=== PATIENT | male | born 1985 ===

== ENCOUNTER 2025-01-13 05:22 | Inpatient (IN) | payer OTHER ==
[~2025-01-13] VITALS: Ht 188 cm; Wt 97.0 kg
[2025-01-13] MEDS: ONDANSETRON HCL 4 MG/2 ML VIAL IV ONE (05:51)
[2025-01-13] MEDS: PANTOPRAZOLE 40 MG/10 ML VIAL INJ IV ONE ×2 (05:52→07:49)
[2025-01-13] MEDS: MORPHINE SULFATE INJ 2 MG/ml SYRG IV ONE (05:52)
[2025-01-13 05:57] VITALS: PULSE 85; RESP 17; O2SAT 97
[2025-01-13 05:59] LABS: Basophils # (auto) 0 10 ^3/uL (0-0.2); Basophils % (auto) 0.6 % (0.0-2.0); Eosinophils # (auto) 0.1 10 ^3/uL (0-0.8); Eosinophils % (auto) 1.3 % (0.0-7.0); Hematocrit 51.6 % (41.0-53.0); Hemoglobin 17.6 g/dL (13.5-17.5); Lymphocytes # (auto) 1.7 10 ^3/uL (0.4-5.4); Lymphocytes % (auto) 22.7 % (10.0-50.0); Mean Corpuscular Hemoglobin 31.1 pg (28.0-32.0); Mean Corpuscular Hgb Conc. 34.1 g/dL (32.0-36.0); Mean Corpuscular Volume 91.1 fL (80.0-100.0); Monocytes # (auto) 0.7 10 ^3/uL (0-1.3); Monocytes % (auto) 9.3 % (0.0-12.0); Neutrophils # (auto) 4.9 10 ^3/uL (1.6-8.6); Neutrophils % (auto) 66.1 % (37.0-80.0); Nucleated Red Blood Cells % 0.1 %; Platelet Count (auto) 296 10^3/uL (140-450); Red Blood Cells 5.67 10^6/uL (4.5-5.90); Red Cell Distribution Width 13.5 % (11.8-14.3); White Blood Cell 7.4 10^3/uL (4.4-10.8)
[2025-01-13 06:13] LABS: INR 1.05 (0.9-1.15); Prothrombin Time 11.1 sec (9.3-11.8)
[2025-01-13 06:18] LABS: Alanine Aminotransferase 32 U/L (7-40); Alkaline Phosphatase 78 U/L (46-116); Anion Gap 9 (5-15); Aspartate Aminotransferase 23 U/L (13-40); BUN/Creatinine Ratio 9.5 (10.0-20.0); Blood Urea Nitrogen 13 mg/dL (9-23); Carbon Dioxide 29 mmol/L (20-31); Chloride 99 mmol/L (98-107); Glucose 88 mg/dL (74-106); Potassium 3.9 mmol/L (3.5-5.1); Sodium 137 mmol/L (136-145)
[2025-01-13 06:26] LABS: Calcium 10.7 mg/dL (8.7-10.4)
[2025-01-13 06:27] LABS: Albumin 5.4 g/dL (3.2-4.8); Bilirubin, Total 1.4 mg/dL (0.2-1.0); Total Protein 8.7 g/dL (5.7-8.2)
[2025-01-13] MEDS: IOHEXOL 300 MG/ML 100ML BOTTLE IJ ONE (06:44)
--- NOTE | 2025-01-13 07:22 | DVH ---
EXAM: CT Abdomen and Pelvis With Intravenous Contrast CLINICAL INDICATION: Coffee ground emesis TECHNIQUE: Axial computed tomography images of the abdomen and pelvis with intravenous contrast. Th is CT exam was performed using one or more of the following dose reduction techniques: automated exp osure control, adjustment of the mA and/or kV according to patient size, and/or use of iterative cuauhtemoc nstruction technique. CONTRAST: RADIATION DOSE: CTDIvol = 15.93 mGy, DLP = 847.54 mGy-cm COMPARISON: None FINDINGS: LUNG BASES: Unremarkable. No mass. No consolidation. ABDOMEN: LIVER: Hepatomegaly with fatty infiltration. GALLBLADDER AND BILE DUCTS: Unremarkable. No calcified stones. No ductal dilation. PANCREAS: Unremarkable. No mass. No ductal dilation. SPLEEN: Unremarkable. No splenomegaly. ADRENALS: Unremarkable. No mass. KIDNEYS AND URETERS: Unremarkable. No solid mass. No hydronephrosis. STOMACH AND BOWEL: Potential asymmetric gastric thickening of the gastric antrum on axial image 20. This could be secondary to underdistention or gastritis. Clinical correlation is recommended. [place] willy diverticulosis without acute diverticulitis. PELVIS: APPENDIX: No findings to suggest acute appendicitis. BLADDER: Unremarkable. No mass. REPRODUCTIVE: Unremarkable as visualized. ABDOMEN and PELVIS: INTRAPERITONEAL SPACE: Unremarkable. No free air. No significant fluid collection. BONES/JOINTS: No acute fracture. No dislocation. SOFT TISSUES: Umbilical hernia containing fat. VASCULATURE: Unremarkable. No abdominal aortic aneurysm. LYMPH NODES: Unremarkable. No enlarged lymph nodes. OTHER FINDINGS: . . IMPRESSION: 1. Potential asymmetric gastric thickening of the gastric antrum on axial image 20. This could be se condary to underdistention or gastritis. Clinical correlation is recommended. 2. Hepatomegaly with fatty infiltration. 3. Umbilical hernia containing fat. 4. Colonic diverticulosis without acute diverticulitis.
--- NOTE | 2025-01-13 07:26 | ED.PDOC ---
GI ASSESSMENT HPI Comments 39 y/o M, with no prior medical history presents to the ED for CC of GI bleed. Patient states, that he woke up this morning (01/13/25) when he began to throw up black coffee ground in appearance emesis [id number]. Patient relays, that he has been throwing up daily for the past several day but never black in appearance. Patient complains, of onset symptoms of abdominal pain, poor appetite, and headache x2days. Patient denies dark stools, fever, chills, or body-aches. No other symptoms or modifying factors present at this time. Chief Complaint: GI Bleed Time Seen by MD: 07:25 Reviewed Notes: Nurses Notes, Medications, Allergies Allergies: Coded Allergies: No Known Drug Allergy (Verified Allergy, Unknown, 01/13/25) Information Source: Patient Mode of Arrival: Ambulatory Timing: Hours Duration: Since onset Prehospital treatment: None Quality: None Vomitus: Tarry Black, Coffee Grounds Stool: Normal Severity: Moderate Recent: None Recent Hx of: None Pain Location: Diffuse Modifying Factors: Nothing Associated sign and symptoms: Nausea, Vomiting Past Medical History PAST MEDICAL HISTORY: Denies Surgical History: Denies all surgeries Family History Family History: Unknown Social History Smoker: Non-Smoker Alcohol: Denies ETOH Use Drugs: Denies Drug Use Lives In: Home Constitutional: denies: chills, diaphoresis, fatigue, fever, malaise, sweats, weakness, others EENTM: denies: blurred vision, double vision, ear bleeding, ear discharge, ear drainage, ear pain, ear ringing, eye pain, eye redness, hearing loss, mouth pain, mouth swelling, nasal discharge, nose bleeding, nose congestion, nose pain, photophobia, tearing, throat pain, throat swelling, voice changes, others Respiratory: denies: cough, hemoptysis, orthopnea, SOB at rest, shortness of breath, SOB with excertion, stridor, wheezing, others Cardiovascular: denies: chest pain, dizzy spells, diaphoresis, Dyspnea on exertion, edema, irregular heart beat, left arm pain, lightheadedness, pa lpitations, PND, syncope, others Gastrointestinal: reports: abdominal pain, nausea, poor appetite, vomiting; denies: abdomen distended, blood streaked bowels, constipated, diarrhea, dysphagia, difficulty swallowing, hematemesis, melena, poor fluid intake, rectal bleeding, rectal pain, others Genitourinary: denies: burning, dysuria, flank pain, frequency, hematuria, incontinence, penile discharge, penile sore, pain, testicle pain, testicle swelling, urgency, others Neurological: reports: headache; denies: dizziness, fainting, left sided numbness, left sided weakness, numbness, paresthesia, pre-existing deficit, right sided numbness, right sided weakness, seizure, speech problems, tingling, tremors, weakness, others Musculoskeletal: denies: back pain, gout, joint pain, joint swelling, muscle pain, muscle stiffness, neck pain, others Integumetry: denies: bruises, change in color, change in hair/nails, dryness, laceration, lesions, lumps, rash, wounds, others Allergic/Immunocompromised: denies: Difficulty Healing, Frequent Infections, Hives, Itching, others Hematologic/Lymphatic: denies: anemia, blood clots, easy bleeding, easy bruisin g, swollen glands, others Endocrine: denies: excessive hunger, excessive sweating, excessive thirst, excessive urination, flushing, intolerance to cold, intolerance to heat, unexplained weight gain, unexplained weight loss, others Psychiatric: denies: anxiety, bipolar disorder, depression, hopeless, panic disorder, schizophrenia, sleepless, suicidal, others All Other Systems: Reviewed and Negative Physical Exam General Appearance: Moderate Distress HEENT: Normal ENT Inspection, Pharynx Normal, TMs Normal Neck: Full Range of Motion, Non-Tender, Normal, Normal Inspection Respiratory: Chest Non-Tender, Lungs Clear, No Accessory Muscle Use, No Respiratory Distress, Normal Breath Sounds Cardiovascular: No Edema, No JVD, No Murmur, No Gallop, Normal Peripheral Pulses, Regular Rate/Rhythm Breast Exam: Deferred Gastrointestinal: No Organomegaly, Non Tender, No Pulsatile Mass, Normal Bowel Sounds, Soft Genitalia: Deferred Pelvic: Deferred Rectal: Deferred Extremities: No calf tenderness, Normal capillary refill, Normal inspection, Normal range of motion, Non-tender, No pedal edema Musculoskeletal : Apperance: Normal Neurologic: Alert, kiln operator II-XII nml as Tested, No Motor Deficits, Normal Affect, Normal Mood, No Sensory Deficits Cerebellar Function: Normal Reflexes: Normal Skin: Dry, Normal Color, Warm Peripheral Pulses: 3+ Radial (R), 3+ Radial (L) Lymphatic: No Adenopathy Was a procedure done? Was a procedure done?: No GI differential Dx Differential Diagnosis: Constipation, Diverticular disease, Esophagitis, Gastritis/PUD, Gastroenteritis, GI hemorrhage X-Ray, Labs, Meds, VS Vital Signs Date Time Temp Pulse Resp B/P (MAP) Pulse Ox O2 Delivery O2 Flow Rate FiO2 01/13/25 07:52 75 17 97 Room Air 01/13/25 07:52 98.2 75 17 143/94 (110) 97 98.2 01/13/25 07:50 75 18 143/93 01/13/25 05:57 85 17 131/90 (104) 97 01/13/25 05:57 85 17 97 Room Air* 0 21 01/13/25 05:52 86 17 131/90 01/13/25 05:36 98.2 103 18 132/74 (93) 97 98.2 Lab Test 01/13/25 05:37 Range/Units White Blood Count 7.4 4.4-10.8 10^3/uL Red Blood Count 5.67 4.5-5.90 10^6/uL Hemoglobin 17.6 H 13.5-17.5 g/dL Hematocrit 51.6 41.0-53.0 % Mean Corpuscular Volume 91.1 80.0-100.0 fL Mean Corpuscular Hemoglobin 31.1 28.0-32.0 pg Mean Corpuscular Hemoglobin Concent 34.1 32.0-36.0 g/dL Red Cell Distribution Width 13.5 11.8-14.3 % Platelet Count 296 140-450 10^3/uL Mean Platelet Volume 8.3 6.9-10.8 fL Neutrophils (%) (Auto) 66.1 37.0-80.0 % Lymphocytes (%) (Auto) 22.7 10.0-50.0 % Monocytes (%) (Auto) 9.3 0.0-12.0 % Eosinophils (%) (Auto) 1.3 0.0-7.0 % Basophils (%) (Auto) 0.6 0.0-2.0 % Neutrophils # (Auto) 4.9 1.6-8.6 10 ^3/uL Lymphocytes # (Auto) 1.7 0.4-5.4 10 ^3/uL Monocytes # (Auto) 0.7 0-1.3 10 ^3/uL Eosinophils # (Auto) 0.1 0-0.8 10 ^3/uL Basophils # (Auto) 0 0-0.2 10 ^3/uL Nucleated Red Blood Cells 0.1 % Prothrombin Time 11.1 9.3-11.8 sec Prothrombin Time INR 1.05 0.9-1.15 Sodium Level 137 136-145 mmol/L Potassium Level 3.9 3.5-5.1 mmol/L Chloride Level 99 98-107 mmol/L Carbon Dioxide Level 29 20-31 mmol/L Anion Gap 9 5-15 Blood Urea Nitrogen 13 9-23 mg/dL Creatinine 1.37 H 0.700-1.30 mg/dL Glomerular Filtration Rate Calc 67 >90 mL/min BUN/Creatinine Ratio 9.5 L 10.0-20.0 Serum Glucose 88 74-106 mg/dL Lactic Acid Level 1.1 0.4-2.0 mmol/L Calcium Level 10.7 H 8.7-10.4 mg/dL Total Bilirubin 1.4 H 0.2-1.0 mg/dL Aspartate Amino Transferase (AST) 23 13-40 U/L Alanine Aminotransferase (ALT) 32 7-40 U/L Alkaline Phosphatase 78 46-116 U/L Troponin I High Sensitivity < 3 L </=54 ng/L Total Protein 8.7 H 5.7-8.2 g/dL Albumin 5.4 H 3.2-4.8 g/dL Current Medications Medications (Trade) Dose Ordered Sig/Najma Route Start Time Stop Time Status Last Admin Pantoprazole Sodium (Protonix) 40 mg ONCE ONCE IV 01/13/25 05:45 01/13/25 05:46 DC 01/13/25 05:52 Morphine Sulfate 2 mg ONCE ONCE IV 01/13/25 05:45 01/13/25 05:46 DC 01/13/25 05:52 Ondansetron HCl (Zofran) 4 mg ONCE ONCE IV 01/13/25 05:45 01/13/25 05:46 DC 01/13/25 05:51 Pantoprazole Sodium (Protonix) 40 mg ONCE ONCE IV 01/13/25 07:30 01/13/25 07:31 DC 01/13/25 07:49 [facility] [id number] [facility] [address] Ph: [phone] DIAGNOSTIC IMAGING Diagnostic Imaging Report : [id number] Signed PATIENT: ZOHREH MORELOS ACCT: [id number] UNIT: [id number] : 1985 LOC: ER ROOM / BED: / AGE / SEX: 39 / M ADM STATUS: REG ER SERVICE 0534 ORDERING PHYSICIAN: JOSE TEJADA MD PROCEDURE(s): ABPLIV - CT AB PEL WITH IV CON ONLY REASON: Coffee ground emesis ORDER NUMBER(s): [id number], ACCESSION NUMBER(s): [id number] EXAM: CT Abdomen and Pelvis With Intravenous Contrast CLINICAL INDICATION: Coffee ground emesis TECHNIQUE: Axial computed tomography images of the abdomen and pelvis with intravenous contrast. This CT exam was performed using one or more of the following dose reduction techniques: automated exposure control, adjustment of the mA and/or kV according to patient size, and/or use of iterative reconstruction technique. CONTRAST: RADIATION DOSE: CTDIvol = 15.93 mGy, DLP = 847.54 mGy-cm COMPARISON: None FINDINGS: LUNG BASES: Unremarkable. No mass. No consolidation. ABDOMEN: LIVER: Hepatomegaly with fatty infiltration. GALLBLADDER AND BILE DUCTS: Unremarkable. No calcified stones. No ductal dilation. PANCREAS: Unremarkable. No mass. No ductal dilation. SPLEEN: Unremarkable. No splenomegaly. ADRENALS: Unremarkable. No mass. KIDNEYS AND URETERS: Unremarkable. No solid mass. No hydronephrosis. STOMACH AND BOWEL: Potential asymmetric gastric thickening of the gastric antrum on axial image 20. This could be secondary to underdistention or gastritis. Clinical correlation is recommended. Colonic diverticulosis without acute diverticulitis. PELVIS: APPENDIX: No findings to suggest acute appendicitis. BLADDER: Unremarkable. No mass. REPRODUCTIVE: Unremarkable as visualized. ABDOMEN and PELVIS: INTRAPERITONEAL SPACE: Unremarkable. No free air. No significant fluid collection. BONES/JOINTS: No acute fracture. No dislocation. SOFT TISSUES: Umbilical hernia containing fat. VASCULATURE: Unremarkable. No abdominal aortic aneurysm. LYMPH NODES: Unremarkable. No enlarged lymph nodes. OTHER FINDINGS: . . IMPRESSION: 1. Potential asymmetric gastric thickening of the gastric antrum on axial image 20. This could be secondary to underdistention or gastritis. Clinical correlation is recommended. 2. Hepatomegaly with fatty infiltration. 3. Umbilical hernia containing fat. 4. Colonic diverticulosis without acute diverticulitis. ATED BY: SABAS COCHRAN MD DICTATED DATE/TIME: 01/13/25719 SIGNED BY: SABAS COCHRAN MD SIGNED DATE/TIME: 01/13/25719 CC: [place] [address] Ph: [phone] DIAGNOSTIC IMAGING Diagnostic Imaging Report : [id number] Signed PATIENT: ZOHREH MORELOS ACCT: [id number] UNIT: [id number] : 1985 [facility] AGE / SEX: 39 / M ADM STATUS: ADM IN SERVICE 9 ORDERING PHYSICIAN: FARIHA FRY MD PROCEDURE(s): CXR1 - CHEST XRAY 1 VIEW REASON: HEMOPTYSIS ORDER NUMBER(s): [id number], ACCESSION NUMBER(s): [id number] CHEST RADIOGRAPH Indication: HEMOPTYSIS Technique: Single frontal view of the chest was obtained Comparison: None FINDINGS: Lines and Tubes: None Lungs: No focal consolidation. Pleura: No effusion. No pneumothorax. Cardiomediastinal contours: Unremarkable Bones: No acute osseous abnormality. IMPRESSION: No acute cardiopulmonary disease. ATED BY: FRANCK GOMEZ MD DICTATED DATE/TIME: 01/13/25936 SIGNED BY: FRANCK GOMEZ MD SIGNED DATE/TIME: 01/13/25936 CC: Patient alert. Complaining of vomiting dark material. Vitals stable. Answering questions. WBC within normal limits. Hemoglobin within normal limits. CT scan of the abdomen reviewed does show thickening possible gastritis. Establish intravenous access. Was given Protonix. GI consultation. Explained to the patient. Continue monitoring. Time of 1ST Reevaluation: 07:55 Reevaluation 1ST: Unchanged Patient Education/Counseling: Diagnosis, Treatment Family Education/Counseling: No Family Present Departure 1 Departure Time of Disposition: 07:37 Impression: Primary Impression: Acute abdominal pain Additional Impressions: Gastritis Qualified Codes: K29.01 - Acute gastritis with bleeding GI bleed Qualified Codes: K92.2 - Gastrointestinal hemorrhage, unspecified Disposition: ADMITTED INPATIENT Admit to: Med Surg Condition: Guarded Critical Care Note Critical Care Time?: No Stability Stability form required: No Heart Score Heart Score: Heart Score Response (Comments) Value History N/A 0 EKG N/A 0 Age N/A 0 Risk Factors N/A 0 Troponin N/A 0 Total 0 I personally scribed for FARIHA FRY MD ([email or web address]) on 01/13/25 at 07:26. Electronically submitted by [employer] ([email or web address]). I personally scribed for FARIHA FRY MD ([email or web address]) on 01/13/25 at 07:33. Electronically submitted by [employer] ([email or web address]). I personally scribed for FARIHA FRY MD ([email or web address]) on 01/13/25 at 07:34. Electronically submitted by [employer] ([email or web address]). I personally scribed for FARIHA FRY MD ([email or web address]) on 01/13/25 at 10:29. Electronically submitted by [employer] ([employer]). FARIHA FRY MD Jan 13, 2025 07:26
[2025-01-13] MEDS ORDERED: HYDROcodone-ACET 5/325MG TAB PO PRN (09:15)
[2025-01-13] MEDS ORDERED: MORPHINE SULFATE INJ 2 MG/ml SYRG IV PRN (09:15)
[2025-01-13] MEDS ORDERED: ACETAMINOPHEN 325 MG TAB PO PRN (09:15)
[2025-01-13] MEDS: SODIUM CHLORIDE 0.9% 1,000 ML IV SCH (09:29)
--- NOTE | 2025-01-13 09:29 | DVHHP2 ---
History of Present Illness Reason for Visit: Abdominal pain History of Present Illness Maurilio Harvey is a 39-year-old male with past medical history of anxiety, PTSD, hernia repair, back pain, neck pain, bone spurs, and arthritis who had an epidural 6-9 months ago who presents to the ED with abdominal pain and cramping with headache with nausea and vomiting times 2 weeks. Patient reports that the pain is 7/10 constant and cramp like. Patient reports that the pain help with the morphine injection that was given earlier today. Patient states that today's emesis had black dark and were dime-sized. He reports that he used semaglutide injections to help with weight loss which was not prescribed and he was able to obtain it on a site called [employer]. Patient reports that he was in the [employer] for 12 years. Patient denies any recent travel, denies any recent trauma or injury, denies any recent sick contacts, fever, chills, lightheadedness, weakness, diarrhea, dizziness, shortness breath, chest pain, or urinary symptoms. Psych: Anxiety, Other (PTSD) Past Medical History Chronic back pain Chronic neck pain Bone spurs Arthritis Past Surgical History: Hernia Repair Family History: Cancer, Other (Dad from melanoma cancer and mom from pancreatic cancer) Smoke: No ALCOHOL: none Drugs: None Lives: with Family Domestic Violence: Neg Review of Systems Constitutional: Yes: Other (Headache and poor appetite) Gastrointestinal: Nausea, Vomiting, Abdominal Pain Allergies: Coded Allergies: No Known Drug Allergy (Verified Allergy, Unknown, 01/13/25) Medications Current Medications Medications Dose Ordered Sig/Najma Route Start Time Stop Time Status Last Admin Dose Admin Pantoprazole Sodium 40 mg DAILY IV 01/13/25 10:00 UNV Piperacillin Sod/ Tazobactam Sod 100 ml @ 25 mls/hr Q8HR IV 01/13/25 14:00 UNV Sodium Chloride 1,000 ml @ 100 mls/hr Q10H IV 01/13/25 09:15 UNV Acetaminophen/ Hydrocodone Bitart 1 tab Q4HP PRN PO 01/13/25 09:15 UNV Ondansetron HCl 4 mg Q4HP PRN IV 01/13/25 09:15 UNV Acetaminophen 650 mg Q6HP PRN PO 01/13/25 09:15 UNV Morphine Sulfate 2 mg Q4HPRN PRN IV 01/13/25 09:15 UNV Exam Vital Signs Vital Signs Date Time Temp Pulse Resp B/P (MAP) Pulse Ox O2 Delivery O2 Flow Rate FiO2 01/13/25 07:52 75 17 97 Room Air 01/13/25 07:52 98.2 143/94 (110) 98.2 01/13/25 05:57 0 21 General Appearance: Alert, Oriented X3, Cooperative, No acute distress HEENT: Atraumatic, PERRLA, EOMI, Mucous membr. moist/pink Respiratory: Clear to auscultation, Normal air movement Cardiovascular: Normal S1, Normal S2, No murmurs Abdominal: Soft Extremities: No clubbing, No cyanosis, No edema, Normal pulses Skin: No significant lesion Neuro: Normal gait, Normal speech, Strength at 5/5 X4 ext, Normal tone, Sensation intact Psych/Mental Status: Mental status NL, Mood NL Labs/Xrays Labs Test 01/13/25 05:37 Range/Units White Blood Count 7.4 4.4-10.8 10^3/uL Red Blood Count 5.67 4.5-5.90 10^6/uL Hemoglobin 17.6 H 13.5-17.5 g/dL Hematocrit 51.6 41.0-53.0 % Mean Corpuscular Volume 91.1 80.0-100.0 fL Mean Corpuscular Hemoglobin 31.1 28.0-32.0 pg Mean Corpuscular Hemoglobin Concent 34.1 32.0-36.0 g/dL Red Cell Distribution Width 13.5 11.8-14.3 % Platelet Count 296 140-450 10^3/uL Mean Platelet Volume 8.3 6.9-10.8 fL Neutrophils (%) (Auto) 66.1 37.0-80.0 % Lymphocytes (%) (Auto) 22.7 10.0-50.0 % Monocytes (%) (Auto) 9.3 0.0-12.0 % Eosinophils (%) (Auto) 1.3 0.0-7.0 % Basophils (%) (Auto) 0.6 0.0-2.0 % Neutrophils # (Auto) 4.9 1.6-8.6 10 ^3/uL Lymphocytes # (Auto) 1.7 0.4-5.4 10 ^3/uL Monocytes # (Auto) 0.7 0-1.3 10 ^3/uL Eosinophils # (Auto) 0.1 0-0.8 10 ^3/uL Basophils # (Auto) 0 0-0.2 10 ^3/uL Nucleated Red Blood Cells 0.1 % Prothrombin Time 11.1 9.3-11.8 sec Prothrombin Time INR 1.05 0.9-1.15 Sodium Level 137 136-145 mmol/L Potassium Level 3.9 3.5-5.1 mmol/L Chloride Level 99 98-107 mmol/L Carbon Dioxide Level 29 20-31 mmol/L Anion Gap 9 5-15 Blood Urea Nitrogen 13 9-23 mg/dL Creatinine 1.37 H 0.700-1.30 mg/dL Glomerular Filtration Rate Calc 67 >90 mL/min BUN/Creatinine Ratio 9.5 L 10.0-20.0 Serum Glucose 88 74-106 mg/dL Lactic Acid Level 1.1 0.4-2.0 mmol/L Calcium Level 10.7 H 8.7-10.4 mg/dL Total Bilirubin 1.4 H 0.2-1.0 mg/dL Aspartate Amino Transferase (AST) 23 13-40 U/L Alanine Aminotransferase (ALT) 32 7-40 U/L Alkaline Phosphatase 78 46-116 U/L Troponin I High Sensitivity < 3 L </=54 ng/L Total Protein 8.7 H 5.7-8.2 g/dL Albumin 5.4 H 3.2-4.8 g/dL EXAM: CT Abdomen and Pelvis With Intravenous Contrast CLINICAL INDICATION: Coffee ground emesis TECHNIQUE: Axial computed tomography images of the abdomen and pelvis with intravenous contrast. This CT exam was performed using one or more of the following dose reduction techniques: automated exposure control, adjustment of the mA and/or kV according to patient size, and/or use of iterative reconstr uction technique. CONTRAST: RADIATION DOSE: CTDIvol = 15.93 mGy, DLP = 847.54 mGy-cm COMPARISON: None FINDINGS: LUNG BASES: Unremarkable. No mass. No consolidation. ABDOMEN: LIVER: Hepatomegaly with fatty infiltration. GALLBLADDER AND BILE DUCTS: Unremarkable. No calcified stones. No ductal dilation. PANCREAS: Unremarkable. No mass. No ductal dilation. SPLEEN: Unremarkable. No splenomegaly. ADRENALS: Unremarkable. No mass. KIDNEYS AND URETERS: Unremarkable. No solid mass. No hydronephrosis. STOMACH AND BOWEL: Potential asymmetric gastric thickening of the gastric antrum on axial image 20. This could be secondary to underdistention or gastritis. Clinical correlation is recommended. Colonic diverticulosis without acute diverticulitis. PELVIS: APPENDIX: No findings to suggest acute appendicitis. BLADDER: Unremarkable. No mass. REPRODUCTIVE: Unremarkable as visualized. ABDOMEN and PELVIS: INTRAPERITONEAL SPACE: Unremarkable. No free air. No significant fluid collection. BONES/JOINTS: No acute fracture. No dislocation. SOFT TISSUES: Umbilical hernia containing fat. VASCULATURE: Unremarkable. No abdominal aortic aneurysm. LYMPH NODES: Unremarkable. No enlarged lymph nodes. OTHER FINDINGS: . . IMPRESSION: 1. Potential asymmetric gastric thickening of the gastric antrum on axial image 20. This could be secondary to underdistention or gastritis. Clinical correlation is recommended. 2. Hepatomegaly with fatty infiltration. 3. Umbilical hernia containing fat. 4. Colonic diverticulosis without acute diverticulitis. Assessment/Plan Assessment/Plan Assessment Intractable abdominal pain likely due to gastritis Rule out GI bleed TATI Hyperbilirubinemia History of anxiety History of PTSD History of back pain History of neck pain History of bone spurs History of arthritis History of hernia repair Plan Admit to [facility] abdomen and pelvis PPIs Antiemetics Pain management Lactic level Stool occult UA Troponin negative EKG Chest x-ray D-dimer PT/INR IV antibiotics-Zosyn GI consult by ED NPO for now IV fluids Home medications reconciled Discussed plan of care with patient, patient's spouse, and nurse DVT prophylaxis-not indicated patient ambulating PUD prophylaxis-Protonix Plan discussed with: Patient My Orders Orders - LEXII CHAUHAN [employer] 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 Procedure Category Date Status Time Pantoprazole PHA 01/13/25 Logged (Protonix) 10:00 Piperacillin-Tazob PHA 01/13/25 Logged 3.375gm (Zosyn 3.375g 14:00 Admit ADMIT 01/13/25 Transmitted 09:13 Allergies LUCÍA 01/13/25 In Process 09:13 Code Status CODE 01/13/25 Transmitted 09:13 Sodium Chloride 0.9% PHA 01/13/25 Logged 09:15 Hydrocodone-Acet PHA 01/13/25 Logged 5/325mg Tab ([place] 09:15 Ondansetron Hcl PHA 01/13/25 Logged (Zofran) 09:15 Complete Blood Count LAB 01/14/25 Verified 04:00 Comprehensive LAB 01/14/25 Verified Metabolic Panel 04:00 Npo (Nothing By DIET 01/13/25 Transmitted Mouth) Diet Breakfast Acetaminophen Tablet PHA 01/13/25 Logged (Tylenol Tablet) 09:15 Morphine Sulfate PHA 01/13/25 Logged Injection 09:15 Sequential LUCÍA 01/13/25 In Process Compression Device Sertraline Hcl PHA 01/13/25 Verified (Zoloft) 10:00 Prazosin Hcl Capsule PHA 01/13/25 Verified (Minipres Capsule) 10:00 Trazodone Hcl PHA 01/13/25 Verified (Desyrel) 22:00 Date of Service: Jan 13, 2025 Billing Provider: LEXII CHAUHAN Common Visit Codes: [id number] INP/OBS CARE (HIGH) LEXII CHAUHAN Jan 13, 2025 09:29
[2025-01-13] MEDS: PIPERACILLIN-TAZOB 3.375GM 100 ML IV ONE (09:34)
--- NOTE | 2025-01-13 09:40 | DVH ---
CHEST RADIOGRAPH Indication: HEMOPTYSIS Technique: Single frontal view of the chest was obtained Comparison: None FINDINGS: Lines and Tubes: None Lungs: No focal consolidation. Pleura: No effusion. No pneumothorax. Cardiomediastinal contours: Unremarkable Bones: No acute osseous abnormality. IMPRESSION: No acute cardiopulmonary disease.
[2025-01-13] MEDS: PANTOPRAZOLE 40 MG/10 ML VIAL INJ IV SCH (09:49)
[2025-01-13] MEDS: SERTRALINE HCL 50 MG TAB PO SCH (09:49)
[2025-01-13] MEDS: PRAZOSIN HCL 1 MG CAP PO SCH (10:07)
[2025-01-13 10:30] VITALS: BP 129/91; PULSE 60; RESP 18; O2SAT 97
[2025-01-13] MEDS: POLYETHYLENE GLYCOL 17 GM PWDR PO SCH (11:08)
[2025-01-13] MEDS ORDERED: TRAZ-181 PO (11:40)
[2025-01-13] MEDS ORDERED: PRAZ1CAP48 PO (11:40)
[2025-01-13] MEDS ORDERED: SERT-206 PO (11:40)
[2025-01-13] MEDS: ONDANSETRON HCL 4 MG/2 ML VIAL IV PRN (12:45)
[2025-01-13 13:05] LABS: Urine Bacteria None Seen /hpf (None Seen)
[2025-01-13 13:07] VITALS: BP 129/91; PULSE 60; RESP 18; TEMP 97.4; O2SAT 97
[2025-01-13 13:12] LABS: Urine Blood Negative /uL (Negative); Urine Clarity Clear (Clear); Urine Color Yellow (Yellow); Urine Mucus FEW (None Seen); Urine Protein, UAD 1+ (Negative); Urine Squamous Epithelial Cell FEW /hpf (<5); Urine Urobilinogen Normal (Negative); Urine WBC 1 /HPF (0-3)
[2025-01-13 13:14] LABS: Urine Specific Gravity > 1.050 (1.001-1.035)
[2025-01-13 14:51] VITALS: BP 122/82; PULSE 64; RESP 15; TEMP 97.7; O2SAT 100
[2025-01-13] MEDS: PIPERACILLIN-TAZOB 3.375GM 100 ML IV SCH (15:09)
[2025-01-13 17:00] VITALS: BP 108/73; PULSE 79; RESP 16; TEMP 98.3; O2SAT 98
[2025-01-13 21:00] VITALS: BP 121/78; PULSE 69; RESP 18; TEMP 97.8; O2SAT 97
[2025-01-13] MEDS: traZODone HCL 50 MG TAB PO SCH (21:20)
[2025-01-13] MEDS: SENNA 8.6 MG TAB PO SCH (22:00)
[2025-01-14] VITALS (7 sets, daily range): BP systolic 117–128; BP diastolic 71–90; PULSE 77–94; RESP 18–19; TEMP 97.7–98.2; O2SAT 95–98
[2025-01-14 06:40] LABS: Basophils # (auto) 0 10 ^3/uL (0-0.2); Basophils % (auto) 0.4 % (0.0-2.0); Eosinophils # (auto) 0.1 10 ^3/uL (0-0.8); Eosinophils % (auto) 1.4 % (0.0-7.0); Hematocrit 45.8 % (41.0-53.0); Hemoglobin 15.7 g/dL (13.5-17.5); Lymphocytes # (auto) 1.8 10 ^3/uL (0.4-5.4); Mean Corpuscular Hemoglobin 30.8 pg (28.0-32.0); Mean Corpuscular Hgb Conc. 34.2 g/dL (32.0-36.0); Mean Corpuscular Volume 89.8 fL (80.0-100.0); Monocytes # (auto) 0.7 10 ^3/uL (0-1.3); Monocytes % (auto) 9.3 % (0.0-12.0); Neutrophils # (auto) 4.9 10 ^3/uL (1.6-8.6); Neutrophils % (auto) 64.9 % (37.0-80.0); Nucleated Red Blood Cells % 0.1 %; Platelet Count (auto) 248 10^3/uL (140-450); Red Blood Cells 5.09 10^6/uL (4.5-5.90); Red Cell Distribution Width 13.2 % (11.8-14.3); White Blood Cell 7.6 10^3/uL (4.4-10.8)
[2025-01-14 07:03] LABS: Alanine Aminotransferase 24 U/L (7-40); Albumin 4.5 g/dL (3.2-4.8); Alkaline Phosphatase 63 U/L (46-116); Anion Gap 10 (5-15); Aspartate Aminotransferase 17 U/L (13-40); BUN/Creatinine Ratio 10.5 (10.0-20.0); Blood Urea Nitrogen 14 mg/dL (9-23); Calcium 9.6 mg/dL (8.7-10.4); Carbon Dioxide 26 mmol/L (20-31); Chloride 101 mmol/L (98-107); Glucose 76 mg/dL (74-106); Potassium 3.9 mmol/L (3.5-5.1); Sodium 137 mmol/L (136-145); Total Protein 7.3 g/dL (5.7-8.2)
[2025-01-14 07:04] LABS: Bilirubin, Total 1.4 mg/dL (0.2-1.0)
[2025-01-14] MEDS: D5W/SOD CHL 0.45% 1,000 ML IV ONE (12:57)
[2025-01-14] MEDS: SODIUM CHLORIDE 0.9% 1,000 ML IV ONE (12:58)
--- NOTE | 2025-01-14 14:05 | DVHPNRES ---
Progress Note Date Seen: Jan 14, 2025 Resident Creating Document: RE KATE CLARISSA Has the PT tested + for MRSA If YES, has PT been informed?: No Medical Necessity Reason Pt with a Central, PICC or Fol: No Subjective Review of Systems This is a 39-year-old male with past medical history of anxiety, PTSD, hernia repair, back/neck pain, bone spur and arthritis came to hospital due to intractable abdominal pain and vomiting. Per patient he was vomiting since 3 weeks, which was been black since 2 this. He also reports crampy abdominal pain, headache, constipation and decreased oral intake. He denies fever, chest pain, shortness of breath or any recent bowel habit changes. PMHx: anxiety, PTSD, hernia repair, back/neck pain, bone spur and arthritis PSHx: Patient has an epidural pain management since 9 months, BCC (status was excision/remission) Family history: Father had melanoma Social history: Ex-vapor, denies any other drug use. Lives at Home with the . Home medication: Prazosin, sertraline, trazodone Allergic history: No known allergy Patient reports: No new complaints, Feels better Changes from previous H/P or p: No Changes Objective vital signs Vital Sign Date Time Temp Pulse Resp B/P (MAP) Pulse Ox O2 Delivery O2 Flow Rate FiO2 01/14/25 12:56 97.8 77 18 121/79 (93) 96 97.8 01/13/25 20:00 Room Air* 0 21 Total Intake and Output 01/13/25 01/13/25 01/14/25 14:59 22:59 06:59 Intake Total 300 ml 100 ml Balance 300 ml 100 ml medications Current Medications Medications Dose Ordered Sig/Najma Route Start Time Stop Time Status Last Admin Dose Admin Pantoprazole Sodium 40 mg DAILY IV 01/13/25 10:00 01/14/25 09:57 40 MG Piperacillin Sod/ Tazobactam Sod 100 ml @ 25 mls/hr Q8HR IV 01/13/25 15:00 01/14/25 06:14 25 MLS/HR Sodium Chloride 1,000 ml @ 100 mls/hr Q10H IV 01/13/25 09:15 01/13/25 09:29 100 MLS/HR Acetaminophen/ Hydrocodone Bitart 1 tab Q4HP PRN PO 01/13/25 09:15 Ondansetron HCl 4 mg Q4HP PRN IV 01/13/25 09:15 01/13/25 12:45 4 MG Acetaminophen 650 mg Q6HP PRN PO 01/13/25 09:15 Morphine Sulfate 2 mg Q4HPRN PRN IV 01/13/25 09:15 Sertraline HCl 100 mg DAILY PO 01/13/25 10:00 01/14/25 09:59 100 MG Prazosin HCl 1 mg Q12HR PO 01/13/25 10:00 01/14/25 09:58 1 MG Trazodone HCl 50 mg HS PO 01/13/25 22:00 01/13/25 21:20 50 MG Polyethylene Glycol 17 gm DAILY PO 01/13/25 10:00 01/14/25 09:58 17 GM Sennosides 8.6 mg HS PO 01/13/25 22:00 Examination General Appearance: Alert, Oriented X3, Cooperative, No acute distress HEENT: Atraumatic, PERRLA, EOMI, Mucous membrane moist/pink Respiratory: Clear to auscultation, Normal air movement Cardiovascular: Regular rate, Normal S1, Normal S2, No murmurs, no chest wall tenderness Abdominal: Mild abdominal tenderness Extremities: No clubbing, No cyanosis, No edema, Normal pulses, No tenderness/swelling Skin: Numerous brown macular lesion on the body Neuro: Normal gait, Normal speech, Strength at 5/5 X4 ext, Normal tone, Sensation intact, Cranial nerves 3-12 NL, Reflexes 2+ Psych/Mental Status: Mental status NL, Mood NL laboratory and microbiology Laboratory Tests 01/14/25 05:25 Test 01/14/25 05:25 Range/Units Serum Glucose 76 74-106 mg/dL Labs and/or images reviewed: Labs reviewed by me, Image(s) reviewed by me Problem List/Assessment/Plan Problem List/Assessment/Plan Possible upper GI bleeding Abdominopelvic CT scan shows, potential asymmetric gastric thickening of the gastric antrum on axial image 20. This could be secondary to underdistention or gastritis GI on the board Stool occult blood Protonix Zofran p.r.n. Empiric antibiotic, Rocephin Possible TATI, likely VMN IV fluid History of PTSD History of anxiety Continue home meds DIET: Clear liquid diet DVT PROPHYLAXIS: Due to possible upper GI bleeding, no anticoagulant is indicated GI PROPHYLAXIS:: Protonix BOWEL REGIMEN: MiraLax DISPOSITION: Med/surge Patient's status and plan discussed with the patient. Case discussed with Dr. Saleh. Plan discussed with: Patient, Spouse, Other (RN) My Orders My Orders Orders - RE KATE Procedure Category Date Status Time Drug Screen LAB 01/14/25 Logged 08:20 D5w/Sod Chl 0.45% PHA 01/14/25 In Process (D5w 1/2ns) 11:45 RE KATE Jan 14, 2025 14:05
[2025-01-14] MEDS: PANTOPRAZOLE 40 MG/10 ML VIAL INJ IV SCH (17:09)
[2025-01-14] MEDS: cefTRIAXone 1GM/50ML D5W 50 ML IV ONE (17:10)
--- NOTE | 2025-01-14 19:14 | DVHINCON2 ---
Date of service: Jan 14, [address] Bright Reason for Consultation Abdominal pain severe results of emesis with hematemesis History of Present Illness This 39-year-old male with no prior medical problems came to the emergency room with complaints of nausea vomiting as well as coffee-ground emesis. Patient apparently has been throwing up constantly for the last few days before she vomiting turned black and coffee-ground and hence he came to the emergency room and from there admitted. No history of any hematochezia no history of any bright red blood Denied any unusual food ingestion. No history of travel no history of any medications except occasional NSAIDs Past Medical History Unremarkable no ulcers no pancreatitis Past Surgical History None Family History: FH: melanoma G8 FATHER, Onset:50's - 60 FH: pancreatic cancer G8 MOTHER, Onset:60 years & older Family History Mother had pancreatic cancer and father had bladder cancer Social History Denies smoking or drinking except for some occasional drinks he works as a mechanical maintenance supervisor Allergies: Coded Allergies: No Known Drug Allergy (Verified Allergy, Unknown, 01/13/25) Home Meds Reported Medications Trazodone HCl (Trazodone Hydrochloride) 50 Mg Tab, 25 MG PO HSPRN PRN for FOR INSOMNIA, TAB 01/13/25 Prazosin HCl (Prazosin Hydrochloride) 1 Mg Cap, 1 MG PO HS, CAP 01/13/25 Sertraline Hcl (Sertraline Hcl) 50 Mg Tab, 100 MG PO DAILY for 30 Days, MG 01/13/25 Current Medications Current Medications Medications (Trade) Dose Ordered Sig/Najma Route PRN Reason Start Time Stop Time Status Last Admin Trazodone HCl (Desyrel) 50 mg HS PO 01/13/25 22:00 01/13/25 21:20 Sennosides (Senokot Tablet) 8.6 mg HS PO 01/13/25 22:00 Ceftriaxone Sodium 50 ml @ 100 mls/hr DAILY@09 IV 01/15/25 09:00 Pantoprazole Sodium (Protonix) 40 mg BID IV 01/14/25 15:45 01/14/25 17:09 Review of Systems Noncontributory Vital Signs Vital Signs Date Time Temp Pulse Resp B/P (MAP) Pulse Ox O2 Delivery O2 Flow Rate FiO2 01/14/25 17:15 97.7 87 19 127/79 (95) 95 97.7 01/14/25 08:05 Room Air* 0 21 Physical Exam Moderately built and nourished male in no acute distress Vitals stable HEENT examination no pallor no icterus Lungs are clear Cardiovascular unremarkable Abdomen is soft mild epigastric tenderness no rigidity no guarding no masses bowel sounds normal Extremities no edema Neurological grossly intact Labs/Diagnostic Data Labs Test 01/14/25 05:25 01/13/25 12:42 01/13/25 05:37 Range/Units White Blood Count 7.6 4.4-10.8 10^3/uL Red Blood Count 5.09 4.5-5.90 10^6/uL Hemoglobin 15.7 13.5-17.5 g/dL Hematocrit 45.8 # 41.0-53.0 % Mean Corpuscular Volume 89.8 80.0-100.0 fL Mean Corpuscular Hemoglobin 30.8 28.0-32.0 pg Mean Corpuscular Hemoglobin Concent 34.2 32.0-36.0 g/dL Red Cell Distribution Width 13.2 11.8-14.3 % Platelet Count 248 140-450 10^3/uL Mean Platelet Volume 8.6 6.9-10.8 fL Neutrophils (%) (Auto) 64.9 37.0-80.0 % Lymphocytes (%) (Auto) 24.0 10.0-50.0 % Monocytes (%) (Auto) 9.3 0.0-12.0 % Eosinophils (%) (Auto) 1.4 0.0-7.0 % Basophils (%) (Auto) 0.4 0.0-2.0 % Neutrophils # (Auto) 4.9 1.6-8.6 10 ^3/uL Lymphocytes # (Auto) 1.8 0.4-5.4 10 ^3/uL Monocytes # (Auto) 0.7 0-1.3 10 ^3/uL Eosinophils # (Auto) 0.1 0-0.8 10 ^3/uL Basophils # (Auto) 0 0-0.2 10 ^3/uL Nucleated Red Blood Cells 0.1 % Sodium Level 137 136-145 mmol/L Potassium Level 3.9 3.5-5.1 mmol/L Chloride Level 101 98-107 mmol/L Carbon Dioxide Level 26 20-31 mmol/L Anion Gap 10 5-15 Blood Urea Nitrogen 14 9-23 mg/dL Creatinine 1.33 H 0.700-1.30 mg/dL Glomerular Filtration Rate Calc 70 >90 mL/min BUN/Creatinine Ratio 10.5 10.0-20.0 Serum Glucose 76 74-106 mg/dL Calcium Level 9.6 8.7-10.4 mg/dL Total Bilirubin 1.4 H 0.2-1.0 mg/dL Aspartate Amino Transferase (AST) 17 13-40 U/L Alanine Aminotransferase (ALT) 24 7-40 U/L Alkaline Phosphatase 63 46-116 U/L Total Protein 7.3 5.7-8.2 g/dL Albumin 4.5 3.2-4.8 g/dL Urine Color Yellow Yellow Urine Clarity Clear Clear Urine pH 7.0 5.0-9.0 Urine Specific [place] > 1.050 H 1.001-1.035 Urine Protein 1+ H Negative Urine Ketones 3+ H Negative Urine Blood Negative Negative /uL Urine Nitrite Negative Negative Urine Bilirubin Negative Negative Urine Urobilinogen Normal Negative mg/dL Urine Leukocyte Esterase Negative Negative /uL Urine RBC 1 0 - 3 /hpf Urine Microscopic WBC 1 0-3 /HPF Urine Squamous Epithelial Cells Few <5 /hpf Urine Bacteria None seen None Seen /hpf Urine Mucus Few None Seen Urine Glucose Normal Normal mg/dL Prothrombin Time 11.1 9.3-11.8 sec Prothrombin Time INR 1.05 0.9-1.15 Lactic Acid Level 1.1 0.4-2.0 mmol/L Troponin I High Sensitivity < 3 L </=54 ng/L Assessment 39-year-old with a history of GI bleeding coffee-ground emesis with severe emesis for the last few days nonstop emesis for couple of days before the hematemesis started no history of ulcer disease GERD etc. Physical exam unrevealing CT scan showed gastric wall thickening and mild hepatomegaly and colonic diverticulosis Possibility of gastritis or severe esophagitis or a Selena-Sewell tear can not be excluded Plan/Recommendation will monitor the hemoglobin Recommend an EGD evaluation to evaluate the source of the bleeding especially with a thickened and abnormal CT scan The procedure risks benefits all explained and agreeable for the same will treat with PPIs in the meanwhile Thank you Dr. Herron Plan discussed with: Patient ADRIANNA HERRON MD Jan 14, 2025 19:14
[2025-01-15 05:00] VITALS: BP 112/64; PULSE 87; RESP 18; TEMP 98.6; O2SAT 96
[2025-01-15 05:05] LABS: Basophils # (auto) 0 10 ^3/uL (0-0.2); Basophils % (auto) 0.5 % (0.0-2.0); Eosinophils # (auto) 0.1 10 ^3/uL (0-0.8); Eosinophils % (auto) 2.5 % (0.0-7.0); Hematocrit 43.3 % (41.0-53.0); Hemoglobin 14.9 g/dL (13.5-17.5); Lymphocytes # (auto) 1.7 10 ^3/uL (0.4-5.4); Lymphocytes % (auto) 31.6 % (10.0-50.0); Mean Corpuscular Hemoglobin 30.6 pg (28.0-32.0); Mean Corpuscular Hgb Conc. 34.5 g/dL (32.0-36.0); Mean Corpuscular Volume 88.7 fL (80.0-100.0); Monocytes # (auto) 0.5 10 ^3/uL (0-1.3); Neutrophils # (auto) 3.1 10 ^3/uL (1.6-8.6); Neutrophils % (auto) 56.4 % (37.0-80.0); Nucleated Red Blood Cells % 0.2 %; Platelet Count (auto) 234 10^3/uL (140-450); Red Blood Cells 4.88 10^6/uL (4.5-5.90); Red Cell Distribution Width 13.1 % (11.8-14.3); White Blood Cell 5.4 10^3/uL (4.4-10.8)
[2025-01-15 05:30] LABS: Alanine Aminotransferase 19 U/L (7-40); Albumin 3.9 g/dL (3.2-4.8); Alkaline Phosphatase 53 U/L (46-116); Aspartate Aminotransferase 16 U/L (13-40); BUN/Creatinine Ratio 7.6 (10.0-20.0); Calcium 8.9 mg/dL (8.7-10.4); Carbon Dioxide 23 mmol/L (20-31); Glucose 90 mg/dL (74-106); Total Protein 6.4 g/dL (5.7-8.2)
[2025-01-15 05:31] LABS: Bilirubin, Total 0.8 mg/dL (0.2-1.0)
[2025-01-15 05:34] LABS: Blood Urea Nitrogen 8 mg/dL (9-23)
[2025-01-15 05:41] LABS: Anion Gap 10 (5-15); Chloride 106 mmol/L (98-107); Potassium 3.6 mmol/L (3.5-5.1); Sodium 139 mmol/L (136-145)
[2025-01-15 09:02] VITALS: BP 120/74; PULSE 78; RESP 19; TEMP 97.8; O2SAT 96
[2025-01-15] MEDS: cefTRIAXone 1GM/50ML D5W 50 ML IV SCH (09:56)
[2025-01-15 10:38] LABS: Benzodiazephine Screen, Urine Neg (NEGATIVE); Opiate Scree,Urine Neg (NEGATIVE)
[2025-01-15 10:39] LABS: Amphetamine Screen, Urine Neg (NEGATIVE); Barbiturate Scree,Urine Neg (NEGATIVE); Cannabinoid Screen, Urine Neg (NEGATIVE); Cocaine Screen, Urine Neg (NEGATIVE); Phencyclidine Screen, Urine Neg (NEGATIVE)
--- NOTE | 2025-01-15 12:33 | DVHPN2 ---
Subjective 01/15 no further hematemesis. Abdominal pain improving. Patient was hungry as he has been NPO for EGD. EGD pending today likely to p.m.. Patient was feeling well and wants to go home if medically stable. GI notified. Hemoglobin stable vitals stable. Likely DC today unless EGD is abnormal significantly. Reviewed: H&P Changes from previous H/P or p: No Changes General: Per HPI Gastrointestinal: Nausea, Vomiting, Abdominal Pain Objective Vitals Vital Signs Date Time Temp Pulse Resp B/P (MAP) Pulse Ox O2 Delivery O2 Flow Rate FiO2 01/15/25 09:02 97.8 78 19 120/74 (89) 96 97.8 01/15/25 08:00 Room Air* 0 21 Intake/Output Intake and Output 01/15/25 07:00 Intake Total 1650 ml Balance 1650 ml Intake Oral 600 ml IV Total 1050 ml # Voids 2 Exam General Appearance: Alert, Oriented X3, Cooperative, No acute distress HEENT: Atraumatic, PERRLA, EOMI, Mucous membrane moist/pink Respiratory: Clear to auscultation, Normal air movement Cardiovascular: Regular rate, Normal S1, Normal S2, No murmurs, no chest wall tenderness Abdominal: Mild abdominal tenderness Extremities: No clubbing, No cyanosis, No edema, Normal pulses, No tenderness/swelling Skin: Numerous brown macular lesion on the body Neuro: Normal gait, Normal speech, Strength at 5/5 X4 ext, Normal tone, Sensation intact, Cranial nerves 3-12 NL, Reflexes 2+ Psych/Mental Status: Mental status NL, Mood NL Medications Current Medications Medications Dose Ordered Sig/Najma Route Start Time Stop Time Status Last Admin Dose Admin Acetaminophen/ Hydrocodone Bitart 1 tab Q4HP PRN PO 01/13/25 09:15 Ondansetron HCl 4 mg Q4HP PRN IV 01/13/25 09:15 01/13/25 12:45 4 MG Acetaminophen 650 mg Q6HP PRN PO 01/13/25 09:15 Morphine Sulfate 2 mg Q4HPRN PRN IV 01/13/25 09:15 Sertraline HCl 100 mg DAILY PO 01/13/25 10:00 01/14/25 09:59 100 MG Prazosin HCl 1 mg Q12HR PO 01/13/25 10:00 01/14/25 21:38 1 MG Trazodone HCl 50 mg HS PO 01/13/25 22:00 01/14/25 21:39 50 MG Polyethylene Glycol 17 gm DAILY PO 01/13/25 10:00 01/14/25 09:58 17 GM Sennosides 8.6 mg HS PO 01/13/25 22:00 Ceftriaxone Sodium 50 ml @ 100 mls/hr DAILY@09 IV 01/15/25 09:00 01/15/25 09:56 100 MLS/HR Pantoprazole Sodium 40 mg BID IV 01/14/25 15:45 01/15/25 09:56 40 MG Laboratory Results Laboratory Tests 01/15/25 04:36 Chemistry Test 01/15/25 04:36 Albumin 3.9 g/dL (3.2-4.8) Calcium Level 8.9 mg/dL (8.7-10.4) Total Protein 6.4 g/dL (5.7-8.2) LFT Test 01/15/25 04:36 Alanine Aminotransferase (ALT) 19 U/L (7-40) Alkaline Phosphatase 53 U/L (46-116) Aspartate Amino Transferase (AST) 16 U/L (13-40) Total Bilirubin 0.8 mg/dL (0.2-1.0) Urinalysis Test 01/13/25 12:42 Urine Color Yellow (Yellow) Urine Clarity Clear (Clear) Urine pH 7.0 (5.0-9.0) Urine Specific [place] > 1.050 (1.001-1.035) Urine Protein 1+ (Negative) H Urine Ketones 3+ (Negative) H Urine Blood Negative /uL (Negative) Urine Nitrite Negative (Negative) Urine Bilirubin Negative (Negative) Urine Urobilinogen Normal mg/dL (Negative) Urine Leukocyte Esterase Negative /uL (Negative) Urine RBC 1 /hpf (0 - 3) Urine Microscopic WBC 1 /HPF (0-3) Urine Squamous Epithelial Cells Few /hpf (<5) Urine Bacteria None seen /hpf (None Seen) Urine Mucus Few (None Seen) Urine Glucose Normal mg/dL (Normal) Labs and/or images reviewed: Labs reviewed by me, Image(s) reviewed by me Assessment/Plan Assessment/Plan 01/15 no further hematemesis. Abdominal pain improving. Patient was hungry as he has been NPO for EGD. EGD pending today likely to p.m.. Patient was feeling well and wants to go home if medically stable. GI notified. Hemoglobin stable vitals stable. Likely DC today unless EGD is abnormal significantly. Possible upper GI bleeding Abdominopelvic CT scan shows, potential asymmetric gastric thickening of the gastric antrum on axial image 20. This could be secondary to underdistention or gastritis GI on the board - egd 01/15 Stool occult blood Protonix Zofran p.r.n. Empiric antibiotic, Rocephin Possible TATI, likely VMN IV fluid History of PTSD History of anxiety Continue home meds DIET: Clear liquid diet DVT PROPHYLAXIS: Due to possible upper GI bleeding, no anticoagulant is indicated GI PROPHYLAXIS:: Protonix BOWEL REGIMEN: MiraLax DISPOSITION: Med/surge Plan discussed with: Patient My Orders Orders - RK BAEZA MD Procedure Category Date Status Time Clear Liq Diet DIET 01/14/25 Transmitted Dinner Date of Service: Jan 15, 2025 Billing Provider: RK BAEZA MD Common Visit Codes: [id number] INP/OBS CARE(HIGH) RK BAEZA MD Jan 15, 2025 12:33
[2025-01-15 13:00] VITALS: BP 117/76; PULSE 72; RESP 17; TEMP 98.3; O2SAT 95
[2025-01-15] MEDS ORDERED: LIDOCAINE 2%HCL (LOCAL ANESTH.) INJ 20ML MDV ONE (14:42)
[2025-01-15] MEDS ORDERED: PROPOFOL 10 MG/ML 20 ML IV ONE (15:03)
[2025-01-15 15:15] VITALS: PULSE 75; RESP 13; O2SAT 99
--- NOTE | 2025-01-15 15:34 | DVHOP2 ---
Operative Report DATE OF PROCEDURE: 01/15/25 INDICATIONS FOR THE PROCEDURE: Hematemesis abdominal pain nausea vomiting PROCEDURE PERFORMED: 1. Esophagogastroduodenoscopy and biopsy POSTOPERATIVE DIAGNOSIS: Hiatal hernia esophagitis LA classification C and superficial gastric ulcers with gastritis in the antrum No gross bleeding seen at this time INFORMED CONSENT: The risks and benefits and alternatives were explained to the patient and informed consent was obtained. PROCEDURE IN DETAIL: The patient was kept NPO after midnight. In the endoscopy room, he was given MAC to get him sedated. Olympus gastroscope was passed through the oropharynx into the stomach and the duodenum, and the findings were as follows. Esophagus: 1 cm hiatal hernia with the GE junction about 36 cm from the incisor There were erythematous streaks with the erosion suggestive of mild gas esophagitis LA classification C No gross bleeding seen no ulcers no mass lesions no stricture no varices No Selena-Sewell tear seen and no active bleeding now Stomach: Fundus: Fundus retroflexed and visualized normal Body and antrum Erythematous streaks with a superficial ulcer pre-pyloric bili of about 67 mm without any gross bleeding but could be the source of the bleeding possibly with some stigmata of some blood around Mild gastritis biopsies taken for H pylori Pylorus normal Duodenum Showed some minimal duodenitis of the postbulbar area without any gross bleeding no ulcers Endoscopic impression Hiatal hernia with esophagitis No bleeding LA classification C Small superficial ulcer of the antrum with some gastritis Suggestions Await the biopsy result Increase the diet to soft diet and advance as tolerated We will recommend treatment with a PPIs and if necessary and symptoms persist may be even add sucralfate Since no further bleeding can be discharged home Thank you for asking me to take part in the care of this pleasant patient Regards\ GERMAINE Huntley MOOTHEDATH A MD Jan 15, 2025 15:34
[2025-01-15 16:49] VITALS: BP 140/86; PULSE 67; RESP 19; TEMP 97.8; O2SAT 100
[2025-01-15] MEDS ORDERED: SUCR1TAB PO (17:01)
[2025-01-15] MEDS ORDERED: PANT40TA2 PO (17:01)
--- NOTE | 2025-01-15 17:09 | DVHDS2 ---
Discharge Summary Date of Admission Jan 13, 2025 at 09:13 Date of Discharge: Jan 15, 2025 Labs/Diagnostic Data: Laboratory Results Test 01/15/25 10:07 01/15/25 04:36 01/13/25 12:42 01/13/25 05:37 Urine Opiates Screen Neg (NEGATIVE) Urine Fentanyl Screen Neg (NEGATIVE) Urine Barbiturates Screen Neg (NEGATIVE) Urine Phencyclidine Screen Neg (NEGATIVE) Urine Amphetamines Screen Neg (NEGATIVE) Urine Benzodiazepines Screen Neg (NEGATIVE) Urine Cocaine Screen Neg (NEGATIVE) Urine Cannabinoids Screen Neg (NEGATIVE) White Blood Count 5.4 10^3/uL (4.4-10.8) Red Blood Count 4.88 10^6/uL (4.5-5.90) Hemoglobin 14.9 g/dL (13.5-17.5) Hematocrit 43.3 % (41.0-53.0) Mean Corpuscular Volume 88.7 fL (80.0-100.0) Mean Corpuscular Hemoglobin 30.6 pg (28.0-32.0) Mean Corpuscular Hemoglobin Concent 34.5 g/dL (32.0-36.0) Red Cell Distribution Width 13.1 % (11.8-14.3) Platelet Count 234 10^3/uL (140-450) Mean Platelet Volume 8.4 fL (6.9-10.8) Neutrophils (%) (Auto) 56.4 % (37.0-80.0) Lymphocytes (%) (Auto) 31.6 % (10.0-50.0) Monocytes (%) (Auto) 9.0 % (0.0-12.0) Eosinophils (%) (Auto) 2.5 % (0.0-7.0) Basophils (%) (Auto) 0.5 % (0.0-2.0) Neutrophils # (Auto) 3.1 10 ^3/uL (1.6-8.6) Lymphocytes # (Auto) 1.7 10 ^3/uL (0.4-5.4) Monocytes # (Auto) 0.5 10 ^3/uL (0-1.3) Eosinophils # (Auto) 0.1 10 ^3/uL (0-0.8) Basophils # (Auto) 0 10 ^3/uL (0-0.2) Nucleated Red Blood Cells 0.2 % Sodium Level 139 mmol/L (136-145) Potassium Level 3.6 mmol/L (3.5-5.1) Chloride Level 106 mmol/L (98-107) Carbon Dioxide Level 23 mmol/L (20-31) Anion Gap 10 (5-15) Blood Urea Nitrogen 8 mg/dL (9-23) Creatinine 1.05 mg/dL (0.700-1.30) Glomerular Filtration Rate Calc 93 mL/min (>90) BUN/Creatinine Ratio 7.6 (10.0-20.0) Serum Glucose 90 mg/dL (74-106) Calcium Level 8.9 mg/dL (8.7-10.4) Total Bilirubin 0.8 mg/dL (0.2-1.0) Aspartate Amino Transferase (AST) 16 U/L (13-40) Alanine Aminotransferase (ALT) 19 U/L (7-40) Alkaline Phosphatase 53 U/L (46-116) Total Protein 6.4 g/dL (5.7-8.2) Albumin 3.9 g/dL (3.2-4.8) Urine Color Yellow (Yellow) Urine Clarity Clear (Clear) Urine pH 7.0 (5.0-9.0) Urine Specific [place] > 1.050 (1.001-1.035) Urine Protein 1+ (Negative) Urine Ketones 3+ (Negative) Urine Blood Negative /uL (Negative) Urine Nitrite Negative (Negative) Urine Bilirubin Negative (Negative) Urine Urobilinogen Normal mg/dL (Negative) Urine Leukocyte Esterase Negative /uL (Negative) Urine RBC 1 /hpf (0 - 3) Urine Microscopic WBC 1 /HPF (0-3) Urine Squamous Epithelial Cells Few /hpf (<5) Urine Bacteria None seen /hpf (None Seen) Urine Mucus Few (None Seen) Urine Glucose Normal mg/dL (Normal) Prothrombin Time 11.1 sec (9.3-11.8) Prothrombin Time INR 1.05 (0.9-1.15) Lactic Acid Level 1.1 mmol/L (0.4-2.0) Troponin I High Sensitivity < 3 ng/L (</=54) Other Laboratory Tests 01/15/25 04:36 Brief Hx & Hospital Course: 39-year-old male with past medical history of anxiety, PTSD, hernia repair, back pain, neck pain, bone spurs, and arthritis who had an epidural 6-9 months ago who presents to the ED with abdominal pain and cramping with headache with nausea and vomiting times 2 weeks. Patient reports that the pain is 7/10 constant and cramp like. Patient reports that the pain help with the morphine injection that was given earlier today. Patient states that today's emesis had black dark and were dime-sized. He reports that he used semaglutide injections to help with weight loss summary: Patient presented with complaint of coffee-ground emesis after few episodes of watery clear emesis. Patient recently made she reports labile with his . had diarrhea, but patient had emesis syndrome. On admission hemoglobin 17.6, hematocrit elevated, specific gravity more than 1.050, ketones 3+. Patient is severely dehydrated and concentrated by exam and labs. No lactic acidosis but that may be due to patient given fluid resuscitation before lactic collected. On admission creatinine is 1.37, patient was TATI which downtrended to 1.05. Patient also has T bili it was likely due to volume dehydration could be early liver shock, T bili resolved to 0.8. CT abdomen and pelvis showing asymmetric gastric thickening on gastric antrum which is read as gastritis. There is also hepatomegaly with fatty infiltration, umbilical hernia with fat, colonic diverticulosis without diverticulitis. GI is consulted hemoglobin remains stable, EGD on 01/15 finds gastric ulcer and highlighted hernia with esophagitis. Patient was stable for discharge as per GI, recommendations to continue Protonix and Carafate as per plan below. Stable for discharge #Hiatal hernia with esophagitis #Small superficial ulcer of the antrum with gastritis #Upper GI bleed, due to above, resolved, #Hematemesis, resolved #Selena-Sewell ruled out #TATI due to VMN resolved #PTSD #Anxiety plan: Mechanical soft diet and advance to regular diet, as tolerated Protonix once daily, Carafate twice daily-both to be taken for at least 1 month Continue other home medications Follow up with PCP to review results of endoscopy and review discharge summary. Condition at Discharge: Fair Final Diagnosis/Problems List Hiatal hernia with esophagitis Small superficial ulcer of the antrum with gastritis Upper GI bleed, due to above, resolved, Hematemesis, resolved Selena-Sewell ruled out TATI due to VMN resolved PTSD Anxiety Discharge Disposition: Home Discharge Instruct/Medications Diet: See Comment Activity: No Restrictions, As Tolerated Follow Up/Referral: pcp Medications: below Discharge Statement: "Patient was advised to return to the ER or call 911 if any headaches, dizziness, shortness of breath, chest pain, abdominal pain, bleeding, fevers, or worsening of medical condition. Patient was counseled about treatment plan, medications, possible side effects, patientverbalized understanding. All questions were answered to the best of my ability. This discharge took greater then 30 minutes in planning, reviewing documentation, counseling the patient, and discussing with other team members." Date of Service: Jan 15, 2025 Billing Provider: RK BAEZA MD Common Visit Codes: [id number] DISCH DAY >30min RK BAEZA MD Jan 15, 2025 17:08
== END 2025-01-15 18:50 | disposition home or self-care (01) | DRG 377 ==
LOC: ER 05:22 → OVERFLOW 09:13 → EEVIPCON 09:13 → CENTRAL 14:18
PROVIDERS: ADMIT Student in an Organized Health Care Education/Training Program; ATTEND Student in an Organized Health Care Education/Training Program
PROC: 0DB68ZX Excision of Stomach, Via Natural or Artificial Opening Endoscopic, Diagnostic (ICD-10-PCS; principal; 2025-01-15 14:53)
DX: K29.71 Gastritis, unspecified, with bleeding (principal); N17.0 Acute kidney failure with tubular necrosis; K20.91 Esophagitis, unspecified with bleeding; K76.0 Fatty (change of) liver, not elsewhere classified; K25.9 Gastric ulcer, unspecified as acute or chronic, without hemorrhage or perforation; K44.9 Diaphragmatic hernia without obstruction or gangrene; E80.6 Other disorders of bilirubin metabolism; G89.29 Other chronic pain; K57.30 Diverticulosis of large intestine without perforation or abscess without bleeding; K42.9 Umbilical hernia without obstruction or gangrene; F43.10 Post-traumatic stress disorder, unspecified; F41.9 Anxiety disorder, unspecified; E86.0 Dehydration; Z80.8 Family history of malignant neoplasm of other organs or systems; Z80.52 Family history of malignant neoplasm of bladder; Z80.0 Family history of malignant neoplasm of digestive organs
CPT/HCPCS: 36415; 43239; 71045; 74177; 80053; 80307; 81001; 83605; 84484; 85025; 85610; 86850; 86900; 86901; 96365; 96375; G0378; J2405; J2470; J2543; J2704